=== PATIENT | female | born 1980 | race Hispanic/Latino ===

== ENCOUNTER 2018-04-19 05:18 | Emergency (ER) | payer BC, OTHER ==
--- OUTSIDE RECORDS SUMMARY | 2018-04-19 05:21 | XMS REPORT | Continuity of Care Document ---
:1980 Author Organization Interface Problems Problem Status Onset Date Classification Date Comments Source Reported Medications Medication Details Route Status Patient Ordering Order Source Instructions Provider Date Allergies, Adverse Reactions, Alerts Substance Category Reaction Severity Reaction Status Date Comments Source type Reported Immunizations Immunization Date Given Site Status Last Updated Comments Source Results Order Results Value Reference Date Interpretation Comments Source Name Range Vital Signs Vital Sign Value Date Comments Source Encounters Location Location Encounter Encounter Reason Attending ADM DC Status Source Details Type Number For Provider Date Date Visit Outpatient [id number] [facility] 01/10 [facility] [place] Outpatient [id number] BARRY 01/28 [facility] [place] Outpatient [id number] BARRY 04/29 [facility] [place] Procedures Procedure Code Date Perfomer Comments Source
[2018-04-19 06:53] LABS: Absolute Monocytes 0.5 K/uL (0.1-1.3); Absolute Neutrophil 8.3 K/uL (1.8-8.0); Basophils % 0.3 % (0-1.3); Hematocrit 37.1 % (36.0-45.0); Lymphocytes % 18.4 % (15.3-44.8); MPV 8.3 fL (7.6-11.3); Monocytes % 4.8 % (3.3-12.3)
[2018-04-19 07:01] LABS: ALT/SGPT 21 U/L (12-78); AST/SGOT 20 U/L (15-37); Albumin 3.4 g/dL (3.4-5.0); Alkaline Phosphatase 79 U/L (45-117); BUN Blood Urea Nitrogen 7 mg/dL (7-18); Bicarbonate 28 mmol/L (21-32); Bilirubin Total 0.5 mg/dL (0.2-1.0); Glucose Level 123 mg/dL (74-106); Protein, Total 7.2 g/dL (6.4-8.2); Sodium Level 139 mmol/L (136-145)
[2018-04-19] MEDS ORDERED: KETOROLAC 30 MG/ML INJ ONE (07:15)
--- NOTE | 2018-04-19 09:21 | ER ---
Nurse's Notes [facility] Name: Frances Johnson Age: 37 yrs Sex: Female : 1980 Arrival Date: 04/19/2018 Time: 05:24 Bed 7 Private MD: Diagnosis: Strain of muscle and tendon of back wall of thorax Presentation: 04/19 05:38 Presenting complaint: Patient states: she is having numbness to neck and left arm worse bb than right arm also has a headache and is complaining of abdominal bloating x 1 day. Pain is getting worse and worse. Transition of care: patient was not received from another setting of care. Onset of symptoms was April 18, 2018. Risk Assessment: Do you want to hurt yourself or someone else? Patient reports no desire to harm self or others. Initial Sepsis Screen: Does the patient meet any 2 criteria? No. Patient's initial sepsis screen is negative. Does the patient have a suspected source of infection? No. Patient's initial sepsis screen is negative. Care prior to arrival: None. 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 - Social history:: Smoking status: Patient/guardian denies using tobacco, Patient/guardian denies using alcohol, street drugs. - Ebola Screening: : No symptoms or risks identified at this time. Screenin:52 Abuse screen: Denies threats or abuse. Denies injuries from another. Nutritional lp1 screening: No deficits noted. Tuberculosis screening: No symptoms or risk factors identified. Fall Risk None identified. Assessment: 05:51 General: Appears uncomfortable, Behavior is appropriate for age. Pain: Complains of lp1 pain in left shoulder, left side of neck Pain currently is 10 out of 10 on a pain scale. Quality of pain is described as sharp, stabbing, Pain began 2-3 days ago. Neuro: Level of Consciousness is awake, alert, obeys commands, Oriented to person, place, time, situation, Moves all extremities. Full function Gait is steady, Intact. Cardiovascular: Patient's skin is warm and dry. Respiratory: Respiratory effort is even, unlabored, Respiratory pattern is regular, Breath sounds are clear bilaterally. GI: No signs and/or symptoms were reported involving the gastrointestinal system. : No signs and/or symptoms were reported regarding the genitourinary system. EENT: No signs and/or symptoms were reported regarding the EENT system. Derm: Skin is pink, warm \T\ dry. Musculoskeletal: Circulation, motion, and sensation intact. 07:08 General: Appears in no apparent distress. uncomfortable, Behavior is calm, cooperative, sv appropriate for age. Pain: Complains of pain in left arm Pain currently is 10 out of 10 on a pain scale. Neuro: Level of Consciousness is awake, alert, obeys commands, Oriented to person, place, time, situation, Moves all extremities. Full function. Respiratory: Respiratory effort is even, unlabored, Respiratory pattern is regular, symmetrical. Derm: Skin is pink, warm \T\ dry. 09:25 Reassessment: Patient appears in no apparent distress at this time. Patient and/or sv family updated on plan of care and expected duration. Pain level reassessed. Patient is alert, oriented x 3, equal unlabored respirations, skin warm/dry/pink. Vital Signs: 05:40 BP 167 / 88; Pulse 71; Resp 18 S; Temp 98.1(O); Pulse Ox 99% on R/A; Weight 86.18 kg bb (R); Height 5 ft. 1 in. (154.94 cm) (R); Pain 10/10; 06:00 BP 168 / 83; Pulse 67; Resp 16; Pulse Ox 98% on R/A; lp1 07:20 BP 158 / 84; Pulse 66; Resp 16; Pulse Ox 98% ; sv 08:51 BP 151 / 89; Pulse 67; Resp 19; Pulse Ox 98% ; sv 05:40 Body Mass Index 35.90 (86.18 kg, 154.94 cm) veronica ED Course: 05:24 Patient arrived in ED. es 05:39 Triage completed. bb 05:40 Arm band placed on Patient placed in an exam room, on a stretcher, on pulse oximetry. bb Family accompanied patient. 05:50 Pam Viera, RN is Primary Nurse. lp1 05:52 Patient has correct armband on for positive identification. Placed in gown. Pulse ox lp1 on. NIBP on. 06:01 Uriel Galicia NP is PHCP. pm1 06:01 Omar Garcia MD is Attending Physician. pm1 06:30 Inserted saline lock: 20 gauge in right antecubital area, using aseptic technique. lp1 Blood collected. 06:[address] via wheelchair. lp1 06:[address] via wheelchair. kw1 06:53 CT completed. Patient tolerated procedure well. Patient moved back from CT. kw1 06:53 CT Head C Spine In Process Unspecified. EDMS 07:03 Primary Nurse role handed off by Pam Viera, RN sv 07:03 Lacey Herman, CLARITA is Primary Nurse. sv 08:09 Awaiting radiology results. sv 09:24 No provider procedures requiring assistance completed. IV discontinued, intact, sv bleeding controlled, No redness/swelling at site. Pressure dressing applied. Administered Medications: 07:08 Drug: TORadol 30 mg Route: IVP; Site: right antecubital; sv 07:30 Follow up: Response: No adverse reaction sv Outcome: 09:20 Discharge ordered by . pm1 09:24 Discharged to home ambulatory, with family. sv 09:24 Condition: stable 09:24 Discharge instructions given to patient, family, Instructed on discharge instructions, follow up and referral plans. medication usage, Demonstrated understanding of instructions, follow-up care, medications, Prescriptions given X 2. 09:25 Patient left the ED. sv Signatures: Dispatcher [employer] Lacey Mesa RN RN Dea Brooks Brenda, RN RN bb Pam Viera RN RN lp1 Uriel Galicia NP INDUSTRIAL PLANT CUSTODIAN pm1 Ivette Fabian kw1
--- NOTE | 2018-04-19 09:21 | EDPHYS ---
Physician Documentation [facility] Name: Frances Johnson Age: 37 yrs Sex: Female : 1980 Arrival Date: 04/19/2018 Time: 05:24 Bed 7 Private MD: ED Physician Omar Garcia HPI: 04/19 08:00 This 37 yrs old Female presents to ER via Ambulatory with complaints of Pain pm1 and numbness to both arms. 08:00 The patient presents to the emergency department with pain and numbness to both arms. pm1 Onset: The symptoms/episode began/occurred 2 day(s) ago. Context: occurred at home. Associated signs and symptoms: Pertinent positives: headache, Pertinent negatives: fever, neck stiffness. Severity of symptoms: in the emergency department the symptoms are worse. The patient has not experienced similar symptoms in the past. 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 Presenting to ER today with numbness and pain to bilateral hands. She has pain to upper back and neck with headache. Patient reports pain with moving both arms.. 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 - Social history:: Smoking status: Patient/guardian denies using tobacco, Patient/guardian denies using alcohol, street drugs. - Ebola Screening: : No symptoms or risks identified at this time. ROS: 08:00 Constitutional: Negative for fever, chills, and weight loss, Eyes: Negative for injury, pm1 pain, redness, and discharge, ENT: Negative for injury, pain, and discharge, Cardiovascular: Negative for chest pain, palpitations, and edema, Respiratory: Negative for shortness of breath, cough, wheezing, and pleuritic chest pain, Abdomen/GI: Negative for abdominal pain, nausea, vomiting, diarrhea, and constipation. 08:00 : Negative for injury, bleeding, discharge, and swelling, MS/Extremity: Negative for injury and deformity, Skin: Negative for injury, rash, and discoloration. 08:00 Neck: Positive for tenderness, of the left trapezius and right trapezius, Negative for stiffness, swelling. 08:00 Back: Positive for of the left scapular area and right scapular area, pain. 08:00 Neuro: Positive for pain and numbness bilateral hands. Exam: 08:00 Constitutional: This is a well developed, well nourished patient who is awake, alert, pm1 and in no acute distress. Head/Face: Normocephalic, atraumatic. Eyes: Pupils equal round and reactive to light, extra-ocular motions intact. Lids and lashes normal. Conjunctiva and sclera are non-icteric and not injected. Cornea within normal limits. Periorbital areas with no swelling, redness, or edema. ENT: Nares patent. No nasal discharge, no septal abnormalities noted. Tympanic membranes are normal and external auditory canals are clear. Oropharynx with no redness, swelling, or masses, exudates, or evidence of obstruction, uvula midline. Mucous membranes moist. 08:00 Chest/axilla: Normal chest wall appearance and motion. Nontender with no deformity. No lesions are appreciated. Cardiovascular: Regular rate and rhythm with a normal S1 and S2. No gallops, murmurs, or rubs. Normal PMI, no JVD. No pulse deficits. Respiratory: Lungs have equal breath sounds bilaterally, clear to auscultation and percussion. No rales, rhonchi or wheezes noted. No increased work of breathing, no retractions or nasal flaring. Abdomen/GI: Soft, non-tender, with normal bowel sounds. No distension or tympany. No guarding or rebound. No evidence of tenderness throughout. 08:00 Skin: Warm, dry with normal turgor. Normal color with no rashes, no lesions, and no evidence of cellulitis. MS/ Extremity: Pulses equal, no cyanosis. Neurovascular intact. Full, normal range of motion. 08:00 Neck: External neck: is normal, C-spine: vertebral tenderness, is not appreciated, Tenderness and muscle spasm present to bilateral trapezius. 08:00 Back: muscle spasm, is appreciated in the left scapular area and right scapular area, reproduced pain with movement of both arms. 08:00 Neuro: Orientation: is normal, Motor: is normal, moves all fours. Vital Signs: 05:40 BP 167 / 88; Pulse 71; Resp 18 S; Temp 98.1(O); Pulse Ox 99% on R/A; Weight 86.18 kg bb (R); Height 5 ft. 1 in. (154.94 cm) (R); Pain 10/10; 06:00 BP 168 / 83; Pulse 67; Resp 16; Pulse Ox 98% on R/A; lp1 07:20 BP 158 / 84; Pulse 66; Resp 16; Pulse Ox 98% ; sv 08:51 BP 151 / 89; Pulse 67; Resp 19; Pulse Ox 98% ; sv 05:40 Body Mass Index 35.90 (86.18 kg, 154.94 cm) bb MDM: 06:01 Patient medically screened. pm1 09:19 Data reviewed: vital signs. Data interpreted: Pulse oximetry: on room air is 98 %. pm1 Interpretation: normal. Counseling: I had a detailed discussion with the patient and/or guardian regarding: the historical points, exam findings, and any diagnostic results supporting the discharge/admit diagnosis, lab results, radiology results, the need for outpatient follow up, to return to the emergency department if symptoms worsen or persist or if there are any questions or concerns that arise at home. 04/19 06:12 Order name: CBC with Diff; Complete Time: 06:59 pm1 04/19 06:12 Order name: CMP; Complete Time: 07:11 pm1 04/19 06:12 Order name: CT Head C Spine pm1 04/19 06:41 Order name: Urine Dipstick--Ancillary (enter results) eb 04/19 06:41 Order name: Urine --Ancillary (enter results) eb 04/19 06:12 Order name: Urine Dipstick-Ancillary (obtain specimen); Complete Time: 06:38 pm1 04/19 06:12 Order name: Urine Test (obtain specimen); Complete Time: 06:38 pm1 04/19 06:12 Order name: IV Saline Lock; Complete Time: 06:34 pm1 Administered Medications: 07:08 Drug: TORadol 30 mg Route: IVP; Site: right antecubital; sv 07:30 Follow up: Response: No adverse reaction sv Disposition: 04/19/18 09:20 Discharged to Home. Impression: Strain of muscle and tendon of back wall of thorax. - Condition is Stable. - Discharge Instructions: Muscle Strain. - Prescriptions for Naprosyn 500 mg Oral Tablet - take 1 tablet by ORAL route 2 times per day take with food; 30 tablet. Skelaxin 800 mg Oral Tablet - take 1 tablet by ORAL route every 8 hours As needed; 30 tablet. - Medication Reconciliation Form, Thank You Letter, Antibiotic Education, Prescription Opioid Use form. - Work release form (04/19/18 09:27). sv - Follow up: Emergency Department; When: As needed; Reason: Worsening of condition. Follow up: Private Physician; When: 2 - 3 days; Reason: Recheck today's complaints, Continuance of care, Re-evaluation by your physician. - Problem is new. - Symptoms have improved. Addendum: 04/21/2018 07:42 Co-signature as Attending Physician, Omar Garcia MD I agree with the assessment and w a plan of care. Signatures: Dispatcher [employer] Lacey Mesa RN RN sv Ballard, Brenda, RN RN bb Uriel Galicia, LEAD INJECTION MOLD TECHNICIAN LEAD INJECTION MOLD TECHNICIAN pm1 Omar Garcia MD MD wa Corrections: (The following items were deleted from the chart) 04/19 09:25 09:20 04/19/2018 09:20 Discharged to Home. Impression: Strain of muscle and tendon of sv back wall of thorax. Condition is Stable. Forms are Medication Reconciliation Form, Thank You Letter, Antibiotic Education, Prescription Opioid Use. Follow up: Emergency Department; When: As needed; Reason: Worsening of condition. Follow up: Private Physician; When: 2 - 3 days; Reason: Recheck today's complaints, Continuance of care, Re-evaluation by your physician. Problem is new. Symptoms have improved. pm1
[2018-04-19 10:22] LABS: Urine Blood 1+ (NEG); Urine Glucose NEGATIVE (NEG); Urine Protein 1+ (NEG)
--- NOTE | 2018-04-21 11:29 | RAD REPORT ---
EXAM DESCRIPTION: CT - Head C Spine Mpr Wo Con - 04/20/2018 1:54 am CLINICAL HISTORY: Headache;Radiculopathy TECHNIQUE: Contiguous axial images of the brain were obtained without the administration of intraven ous contrast. This exam was performed according to our departmental dose-optimization program, which includes automated exposure control, adjustment of the mA and/or kV according to patient size and/or less of iterative reconstruction technique. COMPARISON: Not available. FINDINGS: Brain: No hemorrhage. No territorial infarct. No mass effect. No herniation. Ventricles: Within normal limits for patient's age. Bones: No acute osseous abnormality. Paranasal sinuses: Unremarkable. Mastoid air cells: Unremarkable. Soft tissues: No acute abnormality. IMPRESSION: No acute intracranial abnormalities. See below for CT spine report EXAM DESCRIPTION: Ct Spine without contrast. CLINICAL HISTORY: 37 years Female Headache;Radiculopathy COMPARISON: None. TECHNIQUE: Multiplanar imaging through the cervical spine without contrast. This exam was performed a ccording to our departmental dose-optimization program, which includes automated exposure control, ad justment of the mA and/or kV according to patient size and/or use of iterative reconstruction techniq ue. FINDINGS: No fracture. No subluxation. Disc spaces are preserved. Soft tissues are unremarkable. Visualized lung is clear. IMPRESSION: Unremarkable CT evaluation of the cervical spine.See above fro CT head report. Electronically signed by Mannie Grove MD 04/19/2018 7:38 AM PHYSICIAN INDUSTRIAL Due to temporary technical issues with the PACS/Fluency reporting system, reports are being signed by the in house radiologist as a courtesy to ensure prompt reporting. The interpreting radiologist is f ully responsible for the content of the report.
== END 2018-04-19 09:25 | disposition home or self-care (01) ==
LOC: ER 05:18
DX: S29.012A Strain of muscle and tendon of back wall of thorax, initial encounter (principal); X58.XXXA Exposure to other specified factors, initial encounter; Y93.9 Activity, unspecified; Y92.009 Unspecified place in unspecified non-institutional (private) residence as the place of occurrence of the external cause; F32.9 Major depressive disorder, single episode, unspecified
CPT/HCPCS: 36415; 70450; 72125; 80053; 81003; 81025; 85025; 96374; 99284